=== PATIENT | male | born 1990 | race Caucasian/White ===

== ENCOUNTER 2019-06-17 14:59 | Emergency (ER) | payer OTHER ==
[~2019-06-17] VITALS: Ht 180.3 cm; Wt 74.8 kg
--- NOTE | 2019-06-17 15:14 | NUR ---
DR Parra at the bedside for MSE.
[2019-06-17] MEDS ORDERED: AZITHROMYCIN 250 MG TABLET PO ONE (15:15)
[2019-06-17] MEDS ORDERED: ACETAMINOPHEN 325 MG TABLET PO ONE (15:15)
[2019-06-17] MEDS ORDERED: ACETAMINOPHEN 325 MG TABLET ONE (15:18)
[2019-06-17] MEDS ORDERED: AZITHROMYCIN 250 MG TABLET ONE (15:19)
[2019-06-17 15:45] VITALS: BP 121/77
--- NOTE | 2019-06-17 15:47 | NUR ---
Patient discharged to home in stable conditon. Written and verbal after care instructions given. Patient verbalizes understanding of instructions.
== END 2019-06-17 15:47 | disposition home or self-care (01) ==
LOC: ER 14:59
DX: J02.9 Acute pharyngitis, unspecified (principal)
CPT/HCPCS: A4663; Q0144